=== PATIENT | female | born 1935 | race Caucasian/White ===

== ENCOUNTER → 2016-07-20 | Outpatient (CLI) | payer MEDICARE, BC ==
[~2016-07-20] MED LIST: ACETAMINOPHEN325 MG PO; ASPIRIN81 M1 PO; ASPIRIN81 M2 PO; ASPIRINEC PO; CARDIZEM CD PO; CELEBREX PO; COUMADIN PO; DILTIAZEM 24HR240 M2 PO; DOCU SOFT100 M1 PO; ESTRADIOL0.5 MG PO; ESTRADIOL1 MG PO; FERROUS SULFATE PO; GLYCOLAX; HAIR, SKIN & N1 EAC1 PO; HAIR, SKIN & N1 EAC2 PO; HAIR, SKIN & N1 EACH PO; HYDROCODON-ACE1 EAC1 PO; HYDROCODON-ACE1 EAC5 PO; LISINOPRIL-HCTZ1 T15 PO; LORTAB 7.5-5001 TAB PO; NATURAL LUTEIN20 MG PO; NORCO1 TAB 10/3 PO; OCUVITE TABLET1 TA1 PO; PREMARIN PO; PREVACID; PREVACID PO; SIMVASTATIN20 MG PO; SUMATRIPTAN SU100 MG PO; TEMAZEPAM PO; VIT B-12 PO; VIT E PO; ZESTORETIC 20/21 TAB PO; ZOCOR PO
--- NOTE | ~2016-07-20 | MY11 ---
[facility] RADIOLOGY TEXT RESULTS PATIENT: ANDREW DUARTE LOCATION: [facility] : 37 UNIT #: [id number] AGE: [address]: Jordi Gustafson MD SEX: F ORDER DR: [id number] [facility] [address] [place], [place] [address] [id number] O MR#: [id number] Acc #: [id number] NAME: ANDREW DUARTE : 1935 SEX: F STUDY DATE/TIME: 07/20/2016 9:34 UNIT: [facility] ROOM: STUDY DESCRIPTION: MY Mammogram Screening Dig Sujit Attending Physician: Jordi Gustafson M.D. Ordering Physician: Jordi Gustafson M.D. Primary Care Physician: Hunter Junior M.D. MEDICAL IMAGING REPORT This report is preliminary unless electronic signature is present EXAM Bilateral digital screen mammogram with CAD HISTORY Routine screening. No current complaints. No family history of breast cancer. COMPARISON 02/04/2015, 01/03/2014 and 12/13/2012 FINDINGS MLO and CC digital views of each breast were obtained. There is also an exaggerated lateral CC view of the right breast. There breasts have scattered fibroglandular densities. There are no masses or abnormal calcifications. There has been no change. IMPRESSION No change and no evidence of malignancy. Patients over the age of 40 are entered into a reminder system with target due date for the next mammogram. A result letter will also be sent to the patient. BIRADS: 1 Negative Dictated by... Maxim Gruber M.D. THIS IS AN ELECTRONICALLY VERIFIED REPORT Maxim Gruber M.D. at 07/21/2016 7:04 AM ELIAN/jessica [facility] A Service [facility] RADIOLOGY TEXT RESULTS PATIENT: ANDREW DUARTE LOCATION: [facility] : 37 UNIT #: [id number] AGE: [address]: Jordi Gustafson MD SEX: F ORDER DR: TD: 07/20/2016 12:56 JOB #: [id number] MEDICAL IMAGING REPORT Page 1 of 1 COPY
== END | disposition home or self-care (01) ==
LOC: CWCC 09:07
DX: Z12.31 Encounter for screening mammogram for malignant neoplasm of breast (principal)
CPT/HCPCS: G0202